=== PATIENT | female | born 2000 | race Caucasian/White ===

== ENCOUNTER 2019-12-22 14:15 | Emergency (ER) | payer OTHER, SELFPAY ==
[2019-12-22 14:21] VITALS: BP 140/83; PULSE 103; RESP 18; TEMP 37.3; O2SAT 100
--- NOTE | 2019-12-22 18:12 | ED.EYEPROB ---
HPI - Eye Problem General Chief complaint: Eye Problems Stated complaint: eye pain Time Seen by Provider: 12/22/19 17:38 Source: patient Mode of arrival: ambulatory Limitations: no limitations History of Present Illness HPI Narrative: This is a 19 year old female that presents to the ER for left eye irritation today. Reports burning to the left eye. No known injuries or trauma to the eye. Reports it started suddenly at work. 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 Denies fever, vision changes, or drainage. Related Data Home Medications Medication Instructions Recorded Confirmed No Home Medications 12/22/19 12/22/19 Allergies Allergy/AdvReac Type Severity Reaction Status Date / Time No Known Allergies Allergy Verified 12/22/19 14:22 Review of Systems Review of Systems: Narrative: CONSTITUTIONAL: Denies fever EYES: Reports redness. Denies visual changes, or discharge. All systems reviewed & are unremarkable except as noted in HPI and below PMFSH Past Medical History Medical History (Updated 12/22/19 @ 18:19 by Dodie Velazquez PA-C) No active medical problems Social History Social History (Updated 12/22/19 @ 18:15 by Dodie Velazquez PA-C) Smoking status: Never smoker Exam Narrative: Exam Narrative: GENERAL: Well-appearing, well-nourished, and in no acute distress. HEAD: Normocephalic, atraumatic. EYES: PERRLA and EOMI. Left eye with mild conjunctival injection. Eyelid everted, no foreign bodies noted. Visual acuity left eye 20/20, right eye 20/15. No uptake noted on fluorescein stain exam EXTREMITIES: Normal range of motion. No edema. SKIN: Warm, dry, no rash. NEURO: No focal deficits. Alert and oriented x3. PSYCH: Normal mood and affect Course Vital Signs Vital signs: Vital Signs Temperature 99.1 F 12/22/19 14:21 Pulse Rate 103 H 12/22/19 14:21 Respiratory Rate 18 12/22/19 14:21 Blood Pressure 140/83 12/22/19 14:21 Pulse Oximetry 100 12/22/19 14:21 Temperature 99.1 F 12/22/19 14:21 Pulse Rate 103 H 12/22/19 14:21 Respiratory Rate 18 12/22/19 14:21 Blood Pressure 140/83 07/18/20 14:21 Pulse Oximetry 100 12/22/19 14:21 MDM - Eye Problem MDM Narrative Medical decision making narrative: Patient presents to the emergency department for conjunctivitis. No vision changes. No foreign bodies noted. No uptake on fluorescein stain exam. Likely allergic in nature, will be started on antibiotic ointment to help with irritation, and treat if this is possibly a bacterial infection. Patient was given ophthalmology as needed for follow-up. She was given warnings to return to the ER Critical Care Time Critical Care Time Critical Care Time: No Discharge Plan Discharge Clinical Impression: Conjunctivitis Qualifiers: Conjunctivitis type: acute Acute conjunctivitis type: unspecified Laterality: left Qualified Code(s): H10.32 - Unspecified acute conjunctivitis, left eye Patient Disposition: Home, Self-Care Condition: Stable Instructions: Conjunctivitis (ED) Additional Instructions: Return to the emergency department if you experience fever, vision changes, drainage from the eye, increasing pain in the eye, or any other symptoms that are concerning to you Apply antibiotic eye ointment 4 times daily for the next 5 days. You may use [id number] allergy eyedrops as needed for irritation as well Follow-up with ophthalmology for further evaluation if symptoms persist Prescriptions: No Action No Home Medications RF: 0 Follow-up/Referrals: PHYSICIAN,SEWER PIPE CLEANER [Primary Care Provider] - Delano Liao MD [Physician] - 2 Days
[2019-12-22 18:17] VITALS: BP 123/73; PULSE 83; RESP 18; O2SAT 97
== END 2019-12-22 18:53 | disposition home or self-care (01) ==
PROVIDERS: Emergency Provider Emergency Medicine
DX: H10.32 Unspecified acute conjunctivitis, left eye (principal)
CPT/HCPCS: 99283; A9270

== ENCOUNTER 2020-07-31 16:13 | Emergency (ER) | payer OTHER, SELFPAY ==
--- NOTE | ~2020-07-31 | XR_ITS ---
EXAMINATION: XR ankle LT min 3V DATE: 07/31/2020 17:19 INDICATION: Left ankle pain. TECHNIQUE: 4 views of left ankle were obtained. COMPARISON: Left ankle radiographs 07/31/2017 FINDINGS: Bone alignment is normal. No fracture. Joint spaces are well maintained. IMPRESSION: 1. No fracture. Reviewed, dictated and finalized at location A. FORWARDING SYSTEM MARKUP CLERK IMPRESSION: 1. No fracture.
[2020-07-31 16:35] VITALS: BP 127/81; PULSE 83; RESP 18; TEMP 37.1; O2SAT 100
--- NOTE | 2020-07-31 17:24 | ED.LOWEXIN ---
HPI - Extremity Injury (Lower) General Chief Complaint: Extremity Injury, Lower Stated Complaint: ankle injury x 1 week Time Seen by Provider: 07/31/20 16:41 Source: patient Mode of arrival: ambulatory Limitations: no limitations History of Present Illness HPI Narrative: 19-year-old female She has no medical problems Presents tonight because of left ankle pain for about 10 days She notices that if she torques her ankle into external rotation and dorsiflexion as far as she can that it hurts behind her lateral malleolus The rest of the time including if she is walking or standing on her tiptoes or what ever it does not seem to bother her at all She did not injure the ankle, there is no swelling or erythema Related Data Home Medications Medication Instructions Recorded Confirmed No Home Medications 12/22/19 12/22/19 Allergies Allergy/AdvReac Type Severity Reaction Status Date / Time No Known Allergies Allergy Verified 12/22/19 14:22 Review of Systems Musculoskeletal: Musculoskeletal: Reports arthralgias, Denies joint swelling and Denies muscle cramps Neurologic: Denies numbness and Denies weakness [facility] Past Medical History Medical History (Updated 07/31/20 @ 17:34 by Renato Thompson MD) No active medical problems Social History Social History (Updated 12/22/19 @ 18:15 by Dodie Velazquez PA-C) Smoking status: Never smoker Gender identity (if verbalized by the patient): Female Exam Const: General: no acute distress Orientation/consciousness: patient oriented x3 Resp: Effort & Inspection: normal respiratory effort Skin: General skin exam: normal color Rashes: no rashes Neuro: General: patient oriented x3 Speech: normal speech Extrem: General: normal to inspection and no edema Other: Left ankle has no swelling, really no tenderness, no deformity, no pain with ambulation or standing on tiptoes There likewise does not seem to be any tenderness posterior to the lateral malleolus or along the course of the posterior tibial tendon Course Vital Signs Vital signs: Vital Signs Temperature 37.1 C 07/31/20 16:35 Pulse Rate 83 07/31/20 16:35 Respiratory Rate 18 07/31/20 16:35 Blood Pressure 127/81 07/31/20 16:35 Pulse Oximetry 100 07/31/20 16:35 Temperature 37.1 C 02/25/21 16:35 Pulse Rate 83 07/31/20 16:35 Respiratory Rate 18 07/31/20 16:35 Blood Pressure 127/81 07/31/20 16:35 Pulse Oximetry 100 07/31/20 16:35 MDM - Extremity Injury (Lower) Imaging Data Radiologist's impression: ITS Impressions Ankle X-Ray 07/31/20 17:21 IMPRESSION: 1. No fracture. Discharge Plan Discharge Clinical Impression: Ankle pain Patient Disposition: Home, Self-Care Condition: Stable Additional Instructions: No restrictions on normal activities, avoid those which exacerbate symptoms, aleve or advil as needed If extremely bothersome you can follow up with orthopedics, below, in the office Prescriptions: No Action No Home Medications RF: 0 Follow-up/Referrals: Jd Santana MD [Physician] - (foot and ankle orthopedics) PHYSICIAN,SYSTEMS QA ANALYST [Primary Care Provider] -
== END 2020-07-31 17:57 | disposition home or self-care (01) ==
PROVIDERS: Emergency Provider Emergency Medicine
DX: M25.572 Pain in left ankle and joints of left foot (principal)
CPT/HCPCS: 73610; 99283

== ENCOUNTER 2020-09-19 21:32 | Emergency (ER) | payer OTHER, SELFPAY ==
--- NOTE | ~2020-09-19 | XR_ITS ---
XR hand LT min 3V DATE: 09/19/2020 21:54 INDICATION: Slammed hand in door. Third and fourth digit pain TECHNIQUE: 3 views left hand COMPARISON: None FINDINGS: No fracture or dislocation, periosteal reaction or bone destruction. IMPRESSION: No significant bony or soft tissue abnormality Reviewed, dictated and finalized at location A.
[2020-09-19 21:42] VITALS: BP 157/78; PULSE 79; RESP 16; TEMP 36.8; O2SAT 97
--- NOTE | 2020-09-19 22:42 | ED.UPPEXIN ---
HPI - Extremity Injury (Upper) General Chief Complaint: Extremity Injury, Upper Stated Complaint: left hand pain Time Seen by Provider: 09/19/20 22:37 History of Present Illness HPI narrative: healthy 19 yo female presents to the ED for a hand injury. Tonight while at work she closed her left hand in the door. She has moderate pain in the hand. This is worse with clenching her fist. No wound. No weakness or numbness. Related Data Home Medications Medication Instructions Recorded Confirmed No Home Medications 12/22/19 12/22/19 Allergies Allergy/AdvReac Type Severity Reaction Status Date / Time No Known Allergies Allergy Verified 12/22/19 14:22 Review of Systems Review of Systems: All systems reviewed & are unremarkable except as noted in HPI and below Cardiovascular: Cardiovascular: Denies chest pain Respiratory: Respiratory: Denies dyspnea Musculoskeletal: Musculoskeletal: Denies back pain PMFSH Past Medical History Medical History No active medical problems Social History Social History Smoking status: Never smoker Gender identity (if verbalized by the patient): Female Exam Const: General: healthy appearing, no acute distress and alert Orientation/consciousness: patient oriented x3 HENMT: Head: normal to inspection Resp: Effort & Inspection: normal respiratory effort Cardio: Other: 2 + left radial pulse Skin: General skin exam: normal color Wounds: no wounds Neuro: General: patient oriented x3 and moves all extremities Speech: normal speech Other: distal motor and sensation intact Extrem: Other: minimal swelling to left hand Course Vital Signs Vital signs: Vital Signs Temperature 36.8 C 09/19/20 21:42 Pulse Rate 79 09/19/20 21:42 Respiratory Rate 16 09/19/20 21:42 Blood Pressure 157/78 H 09/19/20 21:42 Pulse Oximetry 97 09/19/20 21:42 Temperature 36.8 C 09/19/20 21:42 Pulse Rate 79 09/19/20 21:42 Respiratory Rate 16 09/19/20 21:42 Blood Pressure 157/78 H 09/19/20 21:42 Pulse Oximetry 97 09/19/20 21:42 MDM - Extremity Injury (Upper) MDM Narrative Medical decision making narrative: No fracture. Mild pain. Declining treatment at this time. Differential Diagnosis Differential diagnosis: Likely fracture of hand and other (contusion) Medical Records Attestation: I reviewed the patient's medical records. Imaging Data Radiologist's impression: ITS Impressions Hand X-Ray 09/19/20 21:55 IMPRESSION: No significant bony or soft tissue abnormality Discharge Plan Discharge Clinical Impression: Contusion of hand Qualifiers: Encounter type: initial encounter Laterality: left Qualified Code(s): S60.222A - Contusion of left hand, initial encounter Patient Disposition: Home, Self-Care Condition: Stable Instructions: Contusion in Adults (ED) Prescriptions: No Action No Home Medications RF: 0 Follow-up/Referrals: PHYSICIAN,ENGLISH FACULTY MEMBER [Primary Care Provider] - Pierre Choudhary DO [Physician] -
[2020-09-19 22:57] VITALS: BP 131/86; PULSE 81; RESP 18; TEMP 36.6; O2SAT 100
== END 2020-09-19 23:02 | disposition home or self-care (01) ==
PROVIDERS: Emergency Provider Emergency Medicine
DX: S60.222A Contusion of left hand, initial encounter (principal); W23.0XXA Caught, crushed, jammed, or pinched between moving objects, initial encounter
CPT/HCPCS: 73130; 99283

== ENCOUNTER 2020-10-27 17:22 | Emergency (ER) | payer OTHER, SELFPAY ==
[2020-10-27 17:35] VITALS: BP 143/75; PULSE 114; RESP 20; TEMP 37.3; O2SAT 99
[2020-10-27 17:56] VITALS: BP 143/75; PULSE 114; RESP 20; TEMP 37.3; O2SAT 99
--- NOTE | 2020-10-27 18:53 | ED.SKABFB ---
HPI - Skin/Abscess/Foreign Bdy General Chief complaint: Skin/Abscess/Foreign Body Stated complaint: Sun poisoning Time Seen by Provider: 10/27/20 18:08 Source: patient Mode of arrival: ambulatory Limitations: no limitations History of Present Illness HPI narrative: Patient is a 19 year old female who presents with complaints of sunburn. Patient reports out in sun on Tuesday and reports did not use enough sunscreen. Reports nausea and vomiting x 2. Reports using multiple over the counter medications for pain and discomfort without relief. She continues to report nausea. Denies all other complaints at this time. complaint: other (Sunburn) Related Data Allergies Allergy/AdvReac Type Severity Reaction Status Date / Time No Known Allergies Allergy Verified 12/22/19 14:22 Review of Systems Review of Systems: Narrative: CONSTITUTIONAL: Denies fever, chills, or sweats. EYES: Denies visual changes, redness, or discharge. ENT: Denies rhinorrhea, congestion, sore throat, or otalgia. CARDIOVASCULAR: Denies chest pain, palpitations, or edema. RESPIRATORY: Denies cough or dyspnea. GASTROINTESTINAL: Denies abdominal pain, nausea, vomiting, or diarrhea. GENITOURINARY: Denies dysuria or hematuria. SKIN: Reports sunburn MUSCULOSKELETAL: Denies back pain, joint pain, or myalgia. NEUROLOGIC: Denies headache, numbness, dizziness, or weakness. PSYCHIATRIC: Denies anxiety or depression. PMFSH Past Medical History Medical History No active medical problems Social History Social History Smoking status: Never smoker Alcohol intake: current Alcohol use details: Occasional Substance use: never Living arrangements: with family Gender identity (if verbalized by the patient): Female Comments At the time of signature, I have reviewed and agree with nursing past medical, surgical, social, and family history unless otherwise noted. Please see nursing chart for further information. There is no relevant family history pertinent to the presenting complaint. Exam Narrative: Exam Narrative: GENERAL: Well-appearing, well-nourished, and in no acute distress. HEAD: Normocephalic, atraumatic. EYES: EOMI. No redness or drainage. Conjunctiva are normal. ENT: Mucous membranes pink and moist. Nares clear. No rhinorrhea. TMs normal bilaterally. Throat normal. Uvula midline. NECK: AROM. Supple. No lymphadenopathy. CHEST: No respiratory distress. Clear to auscultation. HEART: Regular rate and rhythm. No murmur appreciated. Normal peripheral pulses. GI: Soft, nontender without rebound, or guarding. No distention. Bowel sounds normal in all quadrants. MUSCULOSKELETAL: No bony tenderness. EXTREMITIES: Normal range of motion. No edema. SKIN: Warm, dry, no rash. NEURO: No focal deficits. Alert and oriented x3. Gait steady. PSYCH: Normal affect. No signs of depression or anxiety. Course Vital Signs Vital signs: Vital Signs Temperature 37.3 C 10/27/20 17:35 Pulse Rate 114 H 10/27/20 17:35 Respiratory Rate 20 10/27/20 17:35 Blood Pressure 143/75 H 10/27/20 17:35 Pulse Oximetry 99 10/27/20 17:35 Temperature 37.3 C 10/27/20 17:56 Pulse Rate 78 10/27/20 21:33 Respiratory Rate 18 10/27/20 21:33 Blood Pressure 118/78 10/27/20 21:33 Pulse Oximetry 100 10/27/20 21:33 Discharge Plan Discharge Clinical Impression: Sunburn Patient Disposition: Home, Self-Care Condition: Stable Instructions: Sunburn (ED), Cold Compress or Soak (ED) Additional Instructions: Stay well hydrated. Take medication as directed. Cool compresses for comfort. Calamine lotion for comfort. Follow up with your PCP in 3-5 days if symptoms persist. Prescriptions: New ibuprofen 800 mg tablet 800 mg PO Q6H PRN (Reason: pain) Qty: 20 RF: 0 prednisone 20 mg tablet 40 mg PO DAILY 5 Days Qty: 10 RF: 0
[2020-10-27] MEDS: SODIUM CHLORIDE 0.9% IV 1,000 ML 999 ML IV CONT ×2 (19:07→20:51)
[2020-10-27] MEDS: KETOROLAC 30 MG/ML VIAL (*BKC) IV PUSH (19:07)
[2020-10-27] MEDS: ONDANSETRON INJ 4 MG/2 ML VIAL IV PUSH (19:08)
[2020-10-27 20:51] VITALS: BP 116/66; PULSE 90; RESP 18; O2SAT 100
[2020-10-27 21:33] VITALS: BP 118/78; PULSE 78; RESP 18; O2SAT 100
== END 2020-10-27 21:34 | disposition home or self-care (01) ==
PROVIDERS: Emergency Provider Nurse Practitioner
DX: L55.9 Sunburn, unspecified (principal)
CPT/HCPCS: 96361; 96374; 96375; 99284; J1885; J2405; J7030

== ENCOUNTER 2020-10-29 18:59 | Emergency (ER) | payer OTHER, SELFPAY ==
[2020-10-29 19:15] VITALS: BP 134/88; PULSE 83; RESP 20; TEMP 36.8; O2SAT 99
--- NOTE | 2020-10-29 19:30 | ED.SKABFB ---
HPI - Skin/Abscess/Foreign Bdy General Chief complaint: Skin/Abscess/Foreign Body Stated complaint: Sunburn, swelling, purple thighs, cold to touch Time Seen by Provider: 10/29/20 19:30 Source: patient Mode of arrival: ambulatory Limitations: no limitations History of Present Illness HPI narrative: 19-year-old woman comes in today complaining of bilateral leg pain, swelling and a purplish appearance to her thighs after being treated a few days ago for a severe sunburn. She was exposed on a float trip 10/25. She is currently taking steroids and anti-inflammatories. At the time she did have a low-grade fever and vomiting however those have resolved. MD complaint: discoloration Onset (ago): day(s) (2) Tetanus up to date: unsure Location: LLE and RLE Severity: moderate Quality: burning and sharp Pain Consistency: constant Relieving factors: medication Exacerbating factors: palpation and movement Related Data Allergies Allergy/AdvReac Type Severity Reaction Status Date / Time No Known Allergies Allergy Verified 12/22/19 14:22 Review of Systems Constitutional: Constitutional: Denies chills, Denies fever(s) and Denies weakness Cardiovascular: Cardiovascular: Denies chest pain and Denies radiating jaw, neck or arm pain Respiratory: Respiratory: Denies cough and Denies dyspnea Gastrointestinal: Gastrointestinal: Denies abdominal pain, Denies nausea and Denies vomiting Musculoskeletal: Musculoskeletal: Denies arthralgias and Denies joint swelling Integumentary/Breasts: Skin/Breast: Reports as per HPI, Denies pruritus, Reports erythema and Denies rash Neurologic: Denies vertigo, Denies dizziness and Denies syncope Hematologic/Lymphatic: Hematologic/Lymphatic: Denies easy bleeding and Denies easy bruising Allergic/Immunologic: Allergic/Immunologic: Denies lip swelling and Denies throat swelling PMFSH Past Medical History Medical History No active medical problems Social History Social History Smoking status: Never smoker Alcohol intake: current Substance use: never Gender identity (if verbalized by the patient): Female Exam Const: General: healthy appearing and alert Orientation/consciousness: patient oriented x3 Limitations: no limitations Other: Mild distress. HENMT: Other: Peeling skin on the forehead. Eyes: Conjunctivae: conjunctivae normal Pupils: Equal, round and reactive pupils present EOM: EOMs intact bilaterally Resp: Effort & Inspection: normal respiratory effort and not labored Auscultation: clear to auscultation bilaterally, no rales, no rhonchi and no wheezes Cardio: Rate: regular rate Rhythm: regular rhythm Heart sounds: no murmurs Skin: General skin exam: normal color, no jaundice and no pallor Other: Mildly tender erythema and lividity to the anterior thighs and lower legs. Blanching with modest edema but no pitting. No induration, warmth, exudate or bullae. Neuro: General: patient oriented x3, moves all extremities, no focal motor deficits and CN's II-XI intact bilaterally Speech: normal speech Extrem: General: normal to inspection and no clubbing, cyanosis or edema Psych: Appearance: grossly normal and well kempt Mental Status: mental status grossly normal Affect: normal affect Attitude: cooperative Thought content: Yes Normal thought content present Course Vital Signs Vital signs: Vital Signs Temperature 36.8 C 10/29/20 19:15 Pulse Rate 83 10/29/20 19:15 Respiratory Rate 20 10/29/20 19:15 Blood Pressure 134/88 10/29/20 19:15 Pulse Oximetry 99 10/29/20 19:15 Temperature 36.8 C 10/29/20 19:15 Pulse Rate 83 10/29/20 19:15 Respiratory Rate 20 10/29/20 19:15 Blood Pressure 134/88 10/29/20 19:15 Pulse Oximetry 99 10/29/20 19:15 Discharge Plan Discharge Clinical Impression: Sunburn Patient Disposition: Home,
[2020-10-29 20:01] VITALS: BP 126/74; PULSE 95; RESP 20; TEMP 36.7; O2SAT 99
== END 2020-10-29 20:04 | disposition home or self-care (01) ==
PROVIDERS: Emergency Provider Emergency Medicine
DX: L55.9 Sunburn, unspecified (principal)
CPT/HCPCS: 99281; 99282

== ENCOUNTER 2021-05-03 17:01 | Emergency (ER) | payer OTHER, SELFPAY ==
[2021-05-03 17:24] VITALS: BP 155/97; PULSE 104; RESP 16; TEMP 37; O2SAT 99
[2021-05-03 18:55] LABS: Basophils Percent Auto 0.4 % (0.2-1.2); Eosinophils Absolute Auto 0.1 K/mm3 (0-0.3); Eosinophils Percent Auto 1.1 % (0-4.4); Hematocrit 39.9 % (37.0-47.0); Hemoglobin 13.6 g/dL (12.0-15.0); Immature Granulocyte Absolute 0.03 K/mm3 (0.00-0.031); Immature Granulocyte Percent A 0.3 % (0-0.5); Lymphocytes Absolute Auto 2.52 K/mm3 (0.9-3.2); Lymphocytes Percent Auto 25.2 % (18.3-44.2); Mean Corpuscular HGB Conc 34.1 g/dl (32-36); Mean Corpuscular Hemoglobin 30.4 pg (26-34); Mean Corpuscular Volume 89.3 fl (80-100); Mean Platelet Volume 9.5 fl (7.4-10.4); Monocytes Absolute Auto 0.9 K/mm3 (0.1-0.6); Monocytes Percent Auto 8.9 % (2.6-8.5); Neutrophils Absolute Auto 6.4 K/mm3 (1.3-6.7); Neutrophils Percent Auto 64.1 % (45.5-73.1); Platelet Count Result 342 k/mm3 (150-375); Red Blood Count 4.47 M/mm3 (4.2-5.4)
[2021-05-03 19:04] LABS: Prothrombin Time 12.9 Seconds (11.1-14.7)
[2021-05-03 19:05] LABS: Alanine Aminotransferase 46 U/L (4-35); Albumin Level 4.6 g/dL (3.5-5.1); Alkaline Phosphatase 68 U/L (38-126); Anion Gap 8 mmol/L (8-16); Aspartate Amino Transferase 37 U/L (14-36); Bilirubin,Total 0.4 mg/dL (0.2-1.3); Blood Urea Nitrogen 14 mg/dL (7-17); Calcium 9.4 mg/dL (8.4-10.2); Carbon Dioxide 25 mmol/L (22-30); Chloride 102 mmol/L (98-107); Estimated CRCL calculation 144 ml/min; Estimated Glomerular Filt Rate > 60; Glucose 100 mg/dL (65-110); Partial Thromboplastin Time 28.5 SECONDS (22.3-36.8); Potassium 3.8 mmol/L (3.4-5.0); Sodium 135 mmol/L (137-145)
[2021-05-03 19:42] VITALS: BP 145/76; PULSE 93
[2021-05-03 19:43] VITALS: BP 126/83; BP 141/81; PULSE 94; PULSE 99
--- NOTE | 2021-05-03 20:58 | ED.GIBLEED ---
HPI - GI Bleed General Chief complaint: GI Bleed Stated complaint: blood in stool Time Seen by Provider: 05/03/21 18:37 History of Present Illness HPI Narrative: Patient is a 20-year-old female who presents ER with rectal bleeding. Reports she is had 1 bloody stool each day for the last 3 days. Today she had some small clot and became more concerned. She reports she has a formed bowel movement that the water will have a right shoe to it. She will then see read on her toilet paper. She has no weakness or fatigue. No loss of consciousness. She is on no blood thinners. Denies any constipation or straining recently. No history of hemorrhoids or inflammatory bowel disease. Related Data Home Medications Medication Instructions Recorded Confirmed No Home Medications 05/03/21 05/03/21 Allergies Allergy/AdvReac Type Severity Reaction Status Date / Time No Known Allergies Allergy Verified 05/03/21 19:42 Review of Systems Review of Systems: All systems reviewed & are unremarkable except as noted in HPI and below Constitutional: Constitutional: Denies chills, Denies fever(s) and Denies weakness Cardiovascular: Cardiovascular: Denies chest pain and Denies radiating jaw, neck or arm pain Respiratory: Respiratory: Denies cough and Denies dyspnea Gastrointestinal: Gastrointestinal: Denies abdominal pain, Denies constipation, Denies diarrhea, Denies nausea and Denies vomiting PMFSH Past Medical History Medical History (Updated 05/03/21 @ 21:50 by Jc Lawrence MD) No active medical problems Surgical History Surgical History (Updated 05/03/21 @ 21:50 by Jc Lawrence MD) No history of previous surgery Social History Social History Smoking status: Never smoker Alcohol intake: current Alcohol use details: Occasional Substance use: never Gender identity (if verbalized by the patient): Female Exam Narrative: GENERAL: Well-appearing, well-nourished, and in no acute distress. HEAD: Normocephalic, atraumatic. EYES: PERRL and EOMI. ENT: Mucous membranes moist. CHEST: Clear to auscultation. No respiratory distress. HEART: Regular rate and rhythm. Normal peripheral pulses. ABDOMEN: Soft, nontender, nondistended. Rectal exam without external hemorrhoid, ROMAINE with no gross blood on digit but faint occult positive stool noted. EXTREMITIES: Normal range of motion. No edema. SKIN: Warm, dry, no rash. NEURO: Alert and oriented x3. PSYCH: Normal mood and affect. Course Course Emergency Course: Needs follow-up with PCP and GI. No active hemorrhage. May have internal hemorrhoid or diverticular bleed. Vital Signs Vital signs: Vital Signs Temperature 98.6 F 05/03/21 17:24 Pulse Rate 104 H 05/03/21 17:24 Respiratory Rate 16 05/03/21 17:24 Blood Pressure 155/97 H 05/03/21 17:24 Pulse Oximetry 99 05/03/21 17:24 Temperature 98.6 F 05/03/21 17:24 Pulse Rate 99 05/03/21 19:43 Respiratory Rate 16 05/03/21 17:24 Blood Pressure 126/83 05/03/21 19:43 Pulse Oximetry 99 05/03/21 17:24 MDM - GI Bleed Lab Data Result diagrams: 05/03/21 18:49 05/03/21 18:49 Labs: Lab Results 05/03/21 05/03/21 05/03/21 Range/Units 18:49 18:49 18:49 WBC 10.0 (4.5-10.0) K/mm3 RBC 4.47 (4.2-5.4) M/mm3 Hgb 13.6 (12.0-15.0) g/dL Hct 39.9 (37.0-47.0) % MCV 89.3 (80-100) fl MCH 30.4 (26-34) pg MCHC 34.1 (32-36) g/dl RDW 14.0 (11.5-14.5) % Plt Count 342 (150-375) k/mm3 MPV 9.5 (7.4-10.4) fl Immature Gran % (Auto) 0.3 (0-0.5) % Neut % (Auto) 64.1 (45.5-73.1) % Lymph % (Auto) 25.2 (18.3-44.2) % [place] % (Auto) 8.9 H (2.6-8.5) % Eos % (Auto) 1.1 (0-4.4) % Baso % (Auto) 0.4 (0.2-1.2) % Lymph # (Auto) 2.52 (0.9-3.2) K/mm3 [place] # (Auto) 0.9 H (0.1-0.6) K/mm3 Eos # (Auto) 0.1 (0-0.3) K/mm3 Baso # (Auto) 0.0
[2021-05-03 22:28] VITALS: PULSE 68; RESP 16; O2SAT 100
== END 2021-05-03 22:29 | disposition home or self-care (01) ==
PROVIDERS: Emergency Provider Emergency Medicine
DX: K62.5 Hemorrhage of anus and rectum (principal)
CPT/HCPCS: 36415; 80053; 85025; 85610; 85730; 86850; 86900; 86901; 99283

== ENCOUNTER 2021-06-12 17:40 | Emergency (ER) | payer SELFPAY ==
[2021-06-12 17:50] VITALS: BP 156/84; PULSE 102; RESP 18; TEMP 36.6; O2SAT 97
[2021-06-12 19:15] VITALS: BP 140/88; PULSE 60; RESP 18; O2SAT 99
--- NOTE | 2021-06-12 19:15 | ED.GIBLEED ---
HPI - GI Bleed General Chief complaint: Urogenital-Female Stated complaint: rectal bleeding, stomach pain Time Seen by Provider: 06/12/21 19:15 Source: patient Mode of arrival: ambulatory Limitations: no limitations History of Present Illness HPI Narrative: 18 year-old well woman her today for rectal pain and bleeding with BMs. She is also now having low abdominal pain for 15 minutes after a bowel movement. She has no pain or bleeding between episodes. She has been having rectal bleeding off and on for a few years. It ias worse and mor painful lately. She denies persistent constipation, diarrhea, fevers, night sweats, weight loss, easy bruising or bleeding, gum bleeding and anticoagulant use. complaint: blood on toilet paper, blood streaked stool and gross hematochezia Onset (ago): day(s) (3) Pain Consistency: intermittent Severity: severe Relieving factors: none Exacerbating factors: bowel movement Associated symptoms: denies other symptoms Related Data Allergies Allergy/AdvReac Type Severity Reaction Status Date / Time No Known Allergies Allergy Verified 06/12/21 18:00 Review of Systems Review of Systems: All systems reviewed & are unremarkable except as noted in HPI and below Constitutional: Constitutional: Denies chills and Denies fever(s) ENT: Denies dizziness, Denies epistaxis and Denies sore throat Cardiovascular: Cardiovascular: Denies chest pain and Denies radiating jaw, neck or arm pain Respiratory: Respiratory: Denies cough and Denies dyspnea Gastrointestinal: Gastrointestinal: Denies abdominal pain, Denies constipation, Denies diarrhea, Denies nausea and Denies vomiting Genitourinary: Genitourinary: Denies hematuria, Denies nocturia and Denies dysuria Musculoskeletal: Musculoskeletal: Denies back pain and Denies muscle cramps Neurologic: Denies dizziness and Denies syncope Endocrine: Endocrine: Denies fatigue and Denies polydipsia Hematologic/Lymphatic: Hematologic/Lymphatic: Denies easy bleeding and Denies easy bruising PMFSH Past Medical History Medical History No active medical problems Surgical History Surgical History No history of previous surgery Social History Social History Smoking status: Never smoker Alcohol intake: current Alcohol use details: Occasional Substance use: never Gender identity (if verbalized by the patient): Female Exam Const: General: no acute distress and alert Nutritional Appearance: well nourished Orientation/consciousness: patient oriented x3 HENMT: Mouth: Yes moist mucous membranes Throat: posterior oropharynx normal Eyes: Conjunctivae: conjunctivae normal Pupils: Equal, round and reactive pupils present EOM: EOMs intact bilaterally Resp: Effort & Inspection: normal respiratory effort and not labored Auscultation: no rales, no rhonchi and no wheezes Cardio: Rate: regular rate Rhythm: regular rhythm Heart sounds: no murmurs GI: GI Palp: Yes Soft to palpation and Yes Tenderness to palpation present (GI) (mild, diffuse) Rectal Exam: normal sphincter tone and hemorrhoids (small flaccid anal tags x 2. No gross blood) Skin: General skin exam: normal color, no jaundice and no pallor Rashes: no rashes Neuro: General: patient oriented x3, moves all extremities and CN's II-XI intact bilaterally Gait exam (Neuro): Normal gait present Motor exam (neuro): 5/5 motor strength present throughout, Normal motor muscle tone present throughout and Motor abnormalities not present Extrem: General: normal to inspection and no clubbing, cyanosis or edema Psych: Appearance: grossly normal and well kempt Mental Status: mental status grossly normal Affect: normal affect Attitude: cooperative Thought content: Yes Normal thought content present Course Vital Signs Vital signs: Vit
[2021-06-12 19:44] VITALS: BP 140/72; PULSE 78; RESP 18; TEMP 36.6; O2SAT 100
== END 2021-06-12 19:46 | disposition home or self-care (01) ==
PROVIDERS: Emergency Provider Emergency Medicine; PCP Physician Assistant
DX: K62.5 Hemorrhage of anus and rectum (principal)
CPT/HCPCS: 99283

== ENCOUNTER 2021-07-15 01:29 | Day surgery (SDC) | payer OTHER, SELFPAY ==
[2021-07-02 15:44] VITALS: BMI 34.1
[2021-07-15 06:19] VITALS: BP 143/81; PULSE 107; RESP 16; TEMP 36.1; O2SAT 96; BMI 33.7
[2021-07-15] MEDS: LACTATED RINGERS 1,000 ML 150 ML IV CONT (06:33)
--- NOTE | 2021-07-15 07:25 | WPDANESEPPF ---
Anes - Initial Pre Proc Eval Procedure: Operation Date: 07/15/21 07:30 Proposed Procedures p Colonoscopy - Raman Medina MD Date/Time: 07/15/21 07:25 Surgeon: Raman Medina MD Pre Op Diagnosis: Rectal bleed Patient Data Age: 20 Gender: F Height: 1.65 m Weight: 92.1 kg Last Vital Signs Temp 96.9 F L 07/15/21 06:19 Pulse 107 H 07/15/21 06:19 Resp 16 07/15/21 06:19 BP 143/81 H 07/15/21 06:19 Pulse Ox 96 07/15/21 06:19 Allergies Allergy/AdvReac Type Severity Reaction Status Date / Time No Known Allergies Allergy Verified 07/15/21 06:18 Home Medications Medication Instructions Recorded Confirmed Type No Home Medications 07/02/21 07/15/21 History Patient hx anesthesia problems: none Family hx anesthesia problems: none Results Review: All pre-operative results and documents have been reviewed as part of the pre-operative evaluation. [facility] Past Medical History Medical History No active medical problems Surgical History Surgical History No history of previous surgery Social History Social History Smoking status: Never smoker Alcohol intake: current Drinks per week: 2 Alcohol use details: Occasional Substance use: never Living arrangements: with family Gender identity (if verbalized by the patient): Female Spiritual care concerns: No Anes - Eval Final PreProcedure Day of Procedure 07/15/21 07:25 Patient weight: obese Heart: regular rate and rhythm Lungs: clear to auscultation Airway: Mallampati scale class II Neurological: alert and oriented Last oral intake: >/= 8 hours ASA classification: II Emergent: no Anesthetic plan: proceed Anesthesia type and monitoring: general GIVS and standard monitoring Results Review: All pre-operative results and documents have been reviewed as part of the pre-operative evaluation. Informed Consent: The patient's anesthetic plan and its attendant risks and benefits were discussed with the patient/family/POA. Questions were solicited and answers provided to the satisfaction of the patient/family/POA.
--- NOTE | 2021-07-15 07:32 | WPDHPUPDATE1 ---
History and Physical Update Update Date/Time: 07/15/21 07:32 History and Physical has been reviewed, including an updated exam of the patient. There are NO changes in the patient's condition. Risks, benefits, and alternatives have been discussed and questions answered. Patient agrees to proceed with procedure.
[2021-07-15 07:46] VITALS: BP 89/49; PULSE 97; RESP 24; O2SAT 100
[2021-07-15 07:56] VITALS: BP 103/53; PULSE 77; RESP 29; O2SAT 100
[2021-07-15 08:06] VITALS: BP 101/59; PULSE 70; RESP 23; O2SAT 100
== END 2021-07-15 08:13 | disposition home or self-care (01) ==
PROVIDERS: PCP Physician Assistant; Visit Provider Internal Medicine Gastroenterology
PROC: 0DJD8ZZ Inspection of Lower Intestinal Tract, Via Natural or Artificial Opening Endoscopic (ICD-10-PCS; CPT 45378; principal; 2021-07-15 07:30)
DX: K92.1 Melena (principal); K64.8 Other hemorrhoids; E66.9 Obesity, unspecified; Z68.33 Body mass index [BMI] 33.0-33.9, adult
CPT/HCPCS: 45378; J2704; J7120

== ENCOUNTER 2021-09-27 00:05 | Emergency (ER) | payer OTHER, SELFPAY ==
[2021-09-27] VITALS (9 sets, daily range): BP systolic 121–138; BP diastolic 73–84; PULSE 110; RESP 16; TEMP 37.2; O2SAT 100
--- NOTE | ~2021-09-27 | CT_ITS ---
EXAMINATION: CT abdomen pelvis w con DATE: 09/27/2021 01:59 INDICATION: Lower abdominal pain TECHNIQUE: Computed tomography (CT) of the abdomen and pelvis was performed with 100 mL Omnipaque-350 intravenous contrast. Automated exposure control and iterative reconstruction technique were employe d. The dose-length product was 887.80 mGy-cm. COMPARISON: None FINDINGS: Lung bases are clear. Heart size is normal. No pericardial or pleural effusion. Liver, gallbladder, s pleen, pancreas, bilateral adrenal glands and kidneys are normal. There are few scattered small colon ic diverticula without adjacent inflammatory stranding to suggest diverticulitis. Small bowel and savage endix are normal. Bladder, anteverted uterus and bilateral adnexa are unremarkable. Tampon within the vaginal vault. Small amount of likely physiologic fluid in the cul-de-sac. No abscess or free intrap eritoneal gas. L5 segment partially sacralized on the right. IMPRESSION: 1. No acute intra-abdominal/pelvic process. Reviewed, dictated and finalized at location A.
--- NOTE | 2021-09-27 00:32 | ED.ABDPAIN ---
HPI - Abdominal Pain General Chief Complaint: Abdominal Pain Stated Complaint: ABD PAIN ALL DAY Time Seen by Provider: 09/27/21 00:31 Source: patient Mode of arrival: ambulatory Limitations: no limitations History of Present Illness HPI narrative: Patient is a 20-year-old female complain lower abdominal pain, 5 out of 10, dull, cramping, nonradiating started earlier today. Patient states that she recently began control pill, and since she started taking she has been having the above symptoms. Patient denies any chest pain, shortness of breath, nausea, vomiting, diarrhea, urinary symptoms, fever or chills. Related Data Home Medications Medication Instructions Recorded Confirmed No Home Medications 07/02/21 07/15/21 Allergies Allergy/AdvReac Type Severity Reaction Status Date / Time No Known Allergies Allergy Verified 07/15/21 06:18 Review of Systems Review of Systems: All systems reviewed & are unremarkable except as noted in HPI and below Constitutional: Constitutional: Denies body ache(s), Denies chills, Denies excessive sweating, Denies fatigue, Denies fever(s), Denies headache(s), Denies lethargy, Denies malaise, Denies weakness and Denies weight loss Eyes: Eyes: Denies blurry vision, Denies change in vision and Denies loss of vision ENT: Denies dizziness, Denies ear discharge, Denies headache(s), Denies lip swelling, Denies epistaxis, Denies nasal congestion, Denies neck pain, Denies throat swelling and Denies tongue swelling Cardiovascular: Cardiovascular: Denies chest pain, Denies chest pain at rest, Denies chest pain with activity, Denies diaphoresis, Denies rapid heart rate, Denies edema, Denies irregular heart rhythm, Denies lightheadedness, Denies palpitations, Denies dyspnea and Denies dyspnea on exertion Respiratory: Respiratory: Denies chest congestion, Denies cough, Denies hemoptysis, Denies dyspnea and Denies dyspnea on exertion Gastrointestinal: Gastrointestinal: Denies melena, Denies hematochezia, Denies diarrhea, Denies nausea, Denies vomiting and Denies hematemesis Musculoskeletal: Musculoskeletal: Denies abnormal gait, Denies deformity, Denies joint swelling, Denies limited range of motion, Denies neck pain and Denies numbness Neurologic: Denies Abnormal speech present, Denies abnormal gait, Denies confusion, Denies dizziness, Denies headache(s), Denies focal weakness, Denies loss of vision, Denies numbness, Denies Other visual disturbances, Denies Sensory deficit (Neuro) and Denies weakness Psychiatric: Psychiatric: Denies confusion, Denies depression, Denies auditory hallucinations, Denies homicidal ideation and Denies suicidal ideation Endocrine: Endocrine: Denies cold intolerance, Denies excessive sweating, Denies fatigue, Denies heat intolerance and Denies palpitations Hematologic/Lymphatic: Hematologic/Lymphatic: Denies easy bleeding and Denies easy bruising Allergic/Immunologic: Allergic/Immunologic: Denies lip swelling, Denies throat swelling and Denies tongue swelling PMFSH Past Medical History Medical History No active medical problems Surgical History Surgical History No history of previous surgery Social History Social History Smoking status: Never smoker Alcohol intake: current Drinks per week: 2 Alcohol use details: Occasional Substance use: never Gender identity (if verbalized by the patient): Female Spiritual care concerns: No Exam Const: General: cooperative, healthy appearing, comfortable, no acute distress, well developed, alert and awake; No confusion Orientation/consciousness: oriented to person, oriented to place, oriented to time, patient oriented x3 and No confusion Limitations: no limitations HENMT: Head: normal to inspection, normocephalic and atraumatic Ears: hearing jody
[2021-09-27 00:45] LABS: Basophils Absolute Auto 0.1 K/mm3 (0.0-0.1); Basophils Percent Auto 0.4 % (0.2-1.2); Eosinophils Absolute Auto 0.1 K/mm3 (0-0.3); Eosinophils Percent Auto 1.1 % (0-4.4); Hematocrit 40.1 % (37.0-47.0); Hemoglobin 13.4 g/dL (12.0-15.0); Immature Granulocyte Absolute 0.03 K/mm3 (0.00-0.031); Immature Granulocyte Percent A 0.3 % (0-0.5); Lymphocytes Absolute Auto 2.84 K/mm3 (0.9-3.2); Lymphocytes Percent Auto 24.3 % (18.3-44.2); Mean Corpuscular HGB Conc 33.4 g/dl (32-36); Mean Corpuscular Hemoglobin 29.6 pg (26-34); Mean Corpuscular Volume 88.5 fl (80-100); Mean Platelet Volume 9.8 fl (7.4-10.4); Monocytes Absolute Auto 0.9 K/mm3 (0.1-0.6); Monocytes Percent Auto 7.7 % (2.6-8.5); Neutrophils Absolute Auto 7.8 K/mm3 (1.3-6.7); Neutrophils Percent Auto 66.2 % (45.5-73.1); Platelet Count Result 329 k/mm3 (150-375); Red Blood Count 4.53 M/mm3 (4.2-5.4); Red Cell Distribution Width 13.5 % (11.5-14.5); White Blood Count 11.7 K/mm3 (4.5-10.0)
[2021-09-27 00:47] LABS: Add Urine Microscopic? NO; Appearance Urine Clear (Clear); Bilirubin Urine Negative (Negative); Blood Urine Negative (Negative); Color Urine Straw (Yellow); Glucose Urine UA Negative (Negative); Ketones Urine Negative (Negative); Leukocyte Esterase Ur Negative LEU/UL (Negative); Nitrate Urine Negative (Negative); Protein Urine Negative (Negative); Specific Grav Ur 1.009 (1.001-1.035); Urobilinogen Urine Negative mg/dL (<2.0)
[2021-09-27 01:06] LABS: Alanine Aminotransferase 26 U/L (4-35); Albumin Level 4.8 g/dL (3.5-5.1); Alkaline Phosphatase 64 U/L (38-126); Anion Gap 10 mmol/L (8-16); Aspartate Amino Transferase 32 U/L (14-36); Bilirubin,Total 0.2 mg/dL (0.2-1.3); Blood Urea Nitrogen 13 mg/dL (7-17); Carbon Dioxide 21 mmol/L (22-30); Chloride 106 mmol/L (98-107); Estimated CRCL calculation 123 ml/min; Estimated Glomerular Filt Rate > 60; Glucose 122 mg/dL (65-110); Lipase 104 U/L (23-300); Potassium 3.6 mmol/L (3.4-5.0); Sodium 137 mmol/L (137-145)
[2021-09-27] MEDS: KETOROLAC 30 MG/ML VIAL (*BKC) IV PUSH (02:04)
== END 2021-09-27 04:00 | disposition home or self-care (01) ==
PROVIDERS: Emergency Provider Emergency Medicine; PCP Physician Assistant
DX: R10.30 Lower abdominal pain, unspecified (principal)
CPT/HCPCS: 36415; 74177; 80053; 81003; 81025; 83690; 85025; 96374; 99284; J1885; Q9967

== ENCOUNTER 2023-12-02 19:51 | Emergency (ER) | payer OTHER, SELFPAY ==
--- NOTE | ~2023-12-02 | XR_ITS ---
XR chest 2V Ordering provider: Dodie Velazquez PA-C History: 23 years Female with . fever . Comparison: None. FINDINGS: MEDIASTINUM: The cardiac silhouette is not enlarged. LUNGS: No infiltrates, effusions or pneumothorax. OTHER: No free air under the diaphragm. IMPRESSION: No acute cardiopulmonary pathology. Reviewed, dictated and finalized at location A.
--- NOTE | ~2023-12-02 | CT_ITS ---
CT brain wo con Ordering provider: Dodie Velazquez PA-C History: 23 years Female with . headache . Comparison: None. Technique: CT of the head without contrast. Radiation reduction technique utilized. DLP is 605.33 mGy. FINDINGS: BRAIN PARENCHYMA AND CSF SPACES: No midline shift, mass effect or hemorrhage. The brain parenchyma a nd CSF spaces are otherwise normal. VISUALIZED PARANASAL SINUSES: Well aerated. MASTOIDS: Well aerated. BONES: The bones appear intact. SOFT TISSUES: Visualized nasopharynx is normal. Superficial soft tissues are normal. IMPRESSION: No acute intracranial findings. Reviewed, dictated and finalized at location A.
[2023-12-02 19:53] VITALS: BP 139/81; PULSE 103; RESP 14; TEMP 37.6; O2SAT 100
[2023-12-02 21:11] VITALS: BP 123/66; PULSE 99; RESP 16; O2SAT 100
[2023-12-02 22:04] LABS: Appearance Urine Clear (Clear); Basophils Percent Auto 0.2 % (0.2-1.2); Bilirubin Urine Negative (Negative); Blood Urine Negative (Negative); Color Urine Yellow (Yellow); Eosinophils Percent Auto 0.1 % (0-4.4); Glucose Urine UA Negative (Negative); Hematocrit 44.7 % (37.0-47.0); Hemoglobin 14.9 g/dL (12.0-15.0); Immature Granulocyte Absolute 0.03 K/mm3 (0.00-0.031); Immature Granulocyte Percent A 0.3 % (0-0.5); Ketones Urine Trace mg/dL (Negative); Leukocyte Esterase Ur Negative LEU/UL (Negative); Lymphocytes Absolute Auto 1.39 K/mm3 (0.9-3.2); Lymphocytes Percent Auto 15.9 % (18.3-44.2); Mean Corpuscular HGB Conc 33.3 g/dl (32-36); Mean Corpuscular Hemoglobin 29.5 pg (26-34); Mean Corpuscular Volume 88.5 fl (80-100); Mean Platelet Volume 10.2 fl (7.4-10.4); Monocytes Absolute Auto 0.7 K/mm3 (0.1-0.6); Monocytes Percent Auto 7.8 % (2.6-8.5); Neutrophils Absolute Auto 6.6 K/mm3 (1.3-6.7); Neutrophils Percent Auto 75.7 % (45.5-73.1); Nitrate Urine Negative (Negative); Platelet Count Result 255 k/mm3 (150-375); Protein Urine Negative (Negative); Red Blood Count 5.05 M/mm3 (4.2-5.4); Specific Grav Ur 1.022 (1.001-1.035); White Blood Count 8.7 K/mm3 (4.5-10.0)
[2023-12-02 22:08] LABS: Add Urine Microscopic? NO
[2023-12-02] MEDS: ACETAMINOPHEN 500 MG TABLET 1000 MG PO (22:10)
[2023-12-02] MEDS: SODIUM CHLORIDE 0.9% IV 1,000 ML 999 ML IV CONT (22:11)
--- NOTE | 2023-12-02 22:11 | ED.HA ---
HPI - Headache General Chief Complaint: Headache Stated Complaint: headache Time Seen by Provider: 12/02/23 20:53 Source: patient Mode of arrival: ambulatory Limitations: no limitations History of Present Illness HPI Narrative: This is a 23 year old female that presents to the ER for headaches. Ongoing over the last couple of days. Reports today she started to have a fever. Reports associated myalgias. Denies cough, congestion, sore throat, abdominal pain, vomiting, diarrhea, dysuria, numbness or weakness. Related Data Allergies Allergy/AdvReac Type Severity Reaction Status Date / Time No Known Allergies Allergy Verified 12/02/23 19:58 Review of Systems Review of Systems: CONSTITUTIONAL: Reports fever EYES: Denies visual changes ENT: Denies rhinorrhea, congestion, sore throat RESPIRATORY: Denies cough GASTROINTESTINAL: Denies abdominal pain, nausea, vomiting, or diarrhea. GENITOURINARY: Denies dysuria or hematuria. SKIN: Denies rash MUSCULOSKELETAL: Reports myalgia. NEUROLOGIC: Reports headache. Denies numbness, or weakness. All systems reviewed & are unremarkable except as noted in HPI and below PMFSH Past Medical History Medical History (Updated 12/03/23 @ 00:42 by Dodie Velazquez PA-C) No active medical problems Social History Social History (Updated 12/02/23 @ 22:14 by Dodie Velazquez PA-C) Smoking status: Never smoker Exam Narrative: GENERAL: Well-appearing, well-nourished, and in no acute distress. HEAD: Normocephalic, atraumatic. EYES: PERRLA and EOMI. ENT: Nares clear, no rhinorrhea or epistaxis. Mucous membranes moist. Oropharynx without tonsillar hypertrophy exudate or other lesions. Bilateral TMs pearly leo non-bulging NECK: Supple. No adenopathy or masses. Normal ROM CHEST: Clear to auscultation. No respiratory distress. No wheezes rales or rhonchi HEART: Regular rate and rhythm. No murmur heard. Normal peripheral pulses. ABDOMEN: Soft, nontender, nondistended, normal active bowel sounds. EXTREMITIES: Normal range of motion. No edema. SKIN: Warm, dry, no rash. NEURO: No focal deficits. Alert and oriented x3. Cranial nerves 2-12 grossly intact. Negative Kernig and Brudzinski PSYCH: Normal mood and affect Course Course Emergency Course: Patient updated on her workup. Reports feeling much better after migraine cocktail. Resting comfortably Vital Signs Vital signs: Vital Signs Temperature 99.7 F H 12/02/23 19:53 Pulse Rate 103 H 12/02/23 19:53 Respiratory Rate 14 12/02/23 19:53 Blood Pressure 139/81 12/02/23 19:53 Pulse Oximetry 100 12/02/23 19:53 Oxygen Delivery Room Air 12/02/23 19:53 Temperature 99.7 F H 12/02/23 19:53 Pulse Rate 83 12/02/23 23:37 Respiratory Rate 14 12/02/23 23:37 Blood Pressure 116/70 12/02/23 23:37 Pulse Oximetry 97 12/02/23 23:37 Oxygen Delivery Room Air 12/02/23 19:53 MDM - Headache MDM Narrative Medical decision making narrative: patient presents to the emergency department for viral symptoms ongoing over the last couple of days. Reporting headaches, myalgias, and fevers. Borderline febrile upon arrival. Mildly tachycardic. Heart rate normalized with IV fluids. She is nontoxic appearing. She is neurologically intact. CBC metabolic panel without concerning findings. COVID, influenza, and RSV screens are negative. Strep and mono screens are negative. Chest x-ray without acute cardiopulmonary abnormality. Urine without evidence of infection. test is negative. CT brain is normal. Patient updated on her workup. Reports feeling much better after migraine cocktail. Resting comfortably. She is to follow up with PCP. She was given warnings to return to the ER Differential Diagnosis Differential diagnosis: Likely migraine, tension headache, sinusitis and other ( UTI, pneumonia, viral infection, COVID, influenza, strep) Lab Data Attestation: I reviewed the patient's lab results.
[2023-12-02 22:12] LABS: Alanine Aminotransferase 27 U/L (6-35); Albumin Level 4.7 g/dL (3.5-5.1); Alkaline Phosphatase 70 U/L (38-126); Anion Gap 10 mmol/L (4-12); Aspartate Amino Transferase 30 U/L (14-36); Bilirubin,Total 0.6 mg/dL (0.2-1.3); Blood Urea Nitrogen 12 mg/dL (7-17); Calcium 9.2 mg/dL (8.4-10.2); Carbon Dioxide 23 mmol/L (22-30); Chloride 105 mmol/L (98-107); Estimated CRCL calculation 111 ml/min; Estimated Glomerular Filt Rate > 60; Glucose 97 mg/dL (65-110); Potassium 3.9 mmol/L (3.4-5.0); Sodium 138 mmol/L (137-145)
[2023-12-02] MEDS: diphenhydrAMINE HCl INJ 50 MG/ML VIAL 25 MG IV PUSH (22:12)
[2023-12-02] MEDS: METOCLOPRAMIDE HCL INJ 10 MG/2 ML VIAL IV PUSH (22:13)
[2023-12-02 22:47] LABS: Strep Group A RT-PCR NOT DETECTED (Negative)
[2023-12-02 22:57] LABS: Influenza A QL RT-PCR Negative (Negative); Influenza B QL RT-PCR Negative (Negative); RSV RNA, RT-PCR Negative (Negative); SARS-CoV-2 RNA PCR Negative (Negative)
[2023-12-02] MEDS: KETOROLAC 15 MG/ML VIAL (*BKC) IV PUSH (23:22)
[2023-12-02 23:37] VITALS: BP 116/70; PULSE 83; RESP 14; O2SAT 97
[2023-12-02 23:48] LABS: Monoscreen Negative (Negative); Negative Monotest Control Negative (Negative); Positive Monotest Control Positive (Positive)
== END 2023-12-03 00:51 | disposition home or self-care (01) ==
PROVIDERS: Emergency Provider Physician Assistant; PCP Physician Assistant
DX: B34.9 Viral infection, unspecified (principal); R51.9 Headache, unspecified; Z20.822 Contact with and (suspected) exposure to COVID-19
CPT/HCPCS: 36415; 70450; 71046; 80053; 81003; 81025; 85025; 86308; 87637; 87651; 96361; 96374; 96375; 99284; A9270; J1200; J1885; J2765; J7030

== ENCOUNTER 2024-07-15 20:08 | Emergency (ER) | payer SELFPAY ==
--- NOTE | ~2024-07-15 | CT_ITS ---
CLINICAL INDICATION: Lower abdominal pain, right greater than left COMPARISON: 09/27/2021. TECHNIQUE: Multiple contiguous axial images of the abdomen and pelvis were performed following the ad ministration of with 100 mL Omnipaque-350 intravenous contrast The dose-length product (DLP) was 909.08 mGy-cm. Automated exposure control and iterative reconstruction technique were employed. FINDINGS/OBSERVATIONS: Visualized lower thorax: The bilateral lung bases are clear. The heart is of normal size, without pericardial effusion. Small hiatal hernia is present. Liver: The liver enhances homogeneously and demonstrates diffuse fatty infiltration and is enlarged measurin g 21 cm in longitudinal dimension. Gallbladder and biliary system: The gallbladder is only minimally distended, and otherwise unremarkable. Pancreas: The pancreas enhances homogeneously without ductal dilatation. Spleen: The spleen enhances homogeneously and is not enlarged measuring 10 cm in longitudinal dimension. Kidneys: The bilateral kidneys enhance symmetrically without hydronephrosis or renal calculi. Adrenal glands: Unremarkable. Gastrointestinal tract: Caudal and medial to the appendix is free fluid along with infiltration of the peritoneum, possibly o f STOREROOM KEEPER origin. Appendix: The appendix is of normal caliber (axial series, images 119 through 126). Vasculature: Unremarkable. Lymph nodes: No pathologically enlarged or morphologically suspicious lymph nodes within the retroperitoneum or at the root of the mesentery. Pelvic structures: The bladder is decompressed, and otherwise unremarkable. The uterus is anteverted and anteflexed. The left ovary is visualized and is unremarkable. Visualization of the right ovary is somewhat limited, secondary to its proximity to the uterus and ad ditional surrounding structures. Caudal and medial to the appendix is free fluid along with infiltration of the peritoneum, possibly o f STOREROOM KEEPER origin. Body wall and musculoskeletal: No significant degenerative disease within the lower thoracic or lumbosacral spine. IMPRESSION: Findings in the right lower quadrant which are felt to represent a normal appendix. Additional findings caudal and medial to the suspected appendix, within the region of the right ovary , for which pelvic ultrasound may provide better characterization. Free fluid along with infiltration of the peritoneum in the right lower quadrant, caudal and medial t o the appendix and cecum. This finding may represent a ruptured cyst within the ovary. Fatty infiltration of an enlarged liver. Examination is otherwise unremarkable. Reviewed, dictated and finalized at location A. 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 Additional findings caudal and medial to the suspected appendix, within the reg ion of the right ovary, for which pelvic ultrasound may provide better characte rization. Free fluid along with infiltration of the peritoneum in the right lower quadran t, caudal and medial to the appendix and cecum. This finding may represent a ruptured cyst within the ovary. Fatty infiltration of an enlarged liver. Examination is otherwise unremarkable.
[2024-07-15 20:10] VITALS: BP 112/72; PULSE 78; RESP 18; TEMP 36.9; O2SAT 100
--- NOTE | 2024-07-15 20:21 | ED_ITS ---
HPI - General Adult General Chief complaint: Abdominal Pain Stated complaint: abdominal pain Time Seen by Provider: 07/15/24 20:13 History of Present Illness HPI narrative: Jaky is previously healthy 23F that presented to the ED with abdominal pain. It is bilateral lower quadrant pain that started yesterday, it radiates to the back. It feels like menses cramps but much worse. She had a few episodes of non- bloody vomiting yesterday. No vaginal discharge, dysuria, hematuria, diarrhea, fevers, CP or dyspnea. Related Data Allergies Allergy/AdvReac Type Severity Reaction Status Date / Time No Known Allergies Allergy Verified 07/15/24 21:26 Review of Systems 2 Review of Systems: All systems reviewed & are unremarkable except as noted in HPI and below PMFSH Past Medical History Medical History No active medical problems Internal hemorrhoid, bleeding Hematochezia No active medical problems Surgical History Surgical History No history of previous surgery Social History Social History Smoking status: Never smoker Alcohol intake: current Drinks per week: 2 Alcohol use details: Occasional Substance use: never Living arrangements: with family Gender identity (if verbalized by the patient): Female Spiritual care concerns: No Exam 2 Const: General: cooperative, healthy appearing, comfortable, no acute distress, well developed, alert, awake and Physically active O rientation/consciousness: oriented to person, oriented to place and oriented to time HENMT: Head: normal to inspection, normocephalic and atraumatic Ears: h earing grossly normal bilaterally and external ears normal Face/Nose/Sinus: N ormal external nose present Eyes: General: appearance normal, both eyes and all related structures P eriorbital: periorbital findings normal Sclera: sclerae normal Pupils: E qual, round and reactive pupils present Neck: Neck: normal visual inspection Chest: Chest palpation & inspection: normal inspection of the chest Resp: Effort & Inspection: normal respiratory effort, able to speak in complete sentences and no respiratory distress Auscultation: clear to auscultation bilaterally Cardio: Jugular venous distension: no JVD Rate: regular rate Rhythm: r egular rhythm GI: Inspection: normal to inspection GI Palp: Yes Soft to palpation A uscultation: normal bowel sounds Other: TTP in the lower abdomen, right worse than left. Skin: General skin exam: normal color and no rashes or lesions noted Neuro: General: oriented to person, oriented to place and oriented to time Cranial nerves: Yes Equal, round and reactive pupils present Extrem: General: normal to inspection Course Course Emergency Course: ordered labs, UA, fluids and morphine. CLINICAL INDICATION: Lower abdominal pain, right greater than left COMPARISON: 09/27/2021. TECHNIQUE: Multiple contiguous axial images of the abdomen and pelvis were performed following the administration of with 100 mL Omnipaque-350 intravenous contrast The dose-length product (DLP) was 909.08 mGy-cm. Automated exposure control and iterative reconstruction technique were employed. FINDINGS/OBSERVATIONS: Visualized lower thorax: The bilateral lung bases are clear. The heart is of normal size, without pericardial effusion. Small hiatal hernia is present. Liver: The liver enhances homogeneously and demonstrates diffuse fatty infiltration and is enlarged measuring 21 cm in longitudinal dimension. Gallbladder and biliary system: The gallbladder is only minimally distended, and otherwise unremarkable. Pancreas: The pancreas enhances homogeneously without ductal dilatation. Spleen: The spleen enhances homogeneously and is not enlarged measuring 10 cm in longitudinal dimension. Kidneys: The bilateral kidneys enhance symmetrically without hydronephrosis or renal calculi. Adrenal glands: Unremarkable. Gastrointestinal tract: Caudal and medial to the appendix is free fluid along with infiltration of the peritoneum, possibly of CORPORATE CONCIERGE origin. Appendix: The appendix is of normal caliber (axial series, images 119 through 126). Vasculature: Unremarkable. Lymph nodes: No pathologically enlarged or morphologically suspicious lymph nodes within the retroperitoneum or at the root of the mesentery. Pelvic structures: The bladder is decompressed, and otherwise unremarkable. The uterus is anteverted and anteflexed. The left ovary is visualized and is unremarkable. Visualization of the right ovary is somewhat limited, secondary to its proximity to the uterus and additional surrounding structures. Caudal and medial to the appendix is free fluid along with infiltration of the peritoneum, possibly of CORPORATE CONCIERGE origin. Body wall and musculoskeletal: No significant degenerative disease within the lower thoracic or lumbosacral spine. IMPRESSION: Findings in the right lower quadrant which are felt to represent a normal appendix. Additional findings caudal and medial to the suspected appendix, within the region of the right ovary, for which pelvic ultrasound may provide better characterization. Free fluid along with infiltration of the peritoneum in the right lower quadrant, caudal and medial to the appendix and cecum. This finding may represent a ruptured cyst within the ovary. Fatty infiltration of an enlarged liver. Examination is otherwise unremarkable. Labs largely unremarkable After meds and fluids she was feeling much better. Vital Signs Vital signs: Vital Signs Temperature 98.4 F 07/15/24 20:10 Pulse Rate 78 07/15/24 20:10 Respiratory Rate 18 07/15/24 20:10 Blood Pressure 112/72 07/15/24 20:10 Pulse Oximetry 100 07/15/24 20:10 Oxygen Delivery Room Air 07/15/24 20:10 Temperature 98.7 F 07/15/24 22:18 Pulse Rate 87 07/15/24 22:18 Respiratory Rate 16 07/15/24 22:18 Blood Pressure 116/66 07/15/24 22:18 Pulse Oximetry 96 07/15/24 22:18 Oxygen Delivery Room Air 07/15/24 22:18 Medical Decision Making Vital Signs Vital Signs: Vital Signs Temperature 98.4 F 07/15/24 20:10 Pulse Rate 78 07/15/24 20:10 Respiratory Rate 18 07/15/24 20:10 Blood Pressure 112/72 07/15/24 20:10 Pulse Oximetry 100 07/15/24 20:10 Oxygen Delivery Room Air 07/15/24 20:10 Temperature 98.7 F 07/15/24 22:18 Pulse Rate 87 07/15/24 22:18 Respiratory Rate 16 07/15/24 22:18 Blood Pressure 116/66 07/15/24 22:18 Pulse Oximetry 96 07/15/24 22:18 Oxygen Delivery Room Air 07/15/24 22:18 Lab Data 07/15/24 20:14 07/15/24 20:14 Labs: Lab Results 07/15/24 07/15/24 Range/Units 20:14 20:17 WBC 10.1 (4.8-10.8) K/mm3 RBC 4.51 (4.20-5.40) M/mm3 Hgb 13.5 (12.0-15.0) g/dL Hct 40.3 (35.0-49.0) % MCV 89.4 (78.0-102.0) fL MCH 29.9 (27.0-31.0) pg MCHC 33.5 (32-36) g/dL RDW 13.1 (11.6-14.4) % Plt Count 332 (150-420) K/mm3 MPV 9.8 (9.2-11.8) fl Immature Gran % (Auto) 0.3 H (0.0-0.0) % Neut % (Auto) 56.2 (50.0-70.0) % Lymph % (Auto) 33.8 (18.0-42.0) % [place] % (Auto) 7.9 (2.0-11.0) % Eos % (Auto) 1.3 (1.0-6.0) % Baso % (Auto) 0.5 (0.0-1.0) % Lymph # (Auto) 3.42 (1.10-4.50) K/mm3 [place] # (Auto) 0.80 (0.10-0.90) K/mm3 Eos # (Auto) 0.13 (0.02-0.50) K/mm3 Baso # (Auto) 0.05 (0.00-0.10) K/mm3 Abs Immat Gran (auto) 0.03 H (0.00-0.00) K/mm3 Absolute Neuts (auto) 5.69 (1.70-7.20) K/mm3 Absolute Nucleated RBC 0.00 (0.00-0.00) K/mm3 Nucleated RBC % 0.0 (0-0.0) % PT 10.8 (9.50-12.1) Seconds INR 1.0 Sodium 139 (136-145) mmol/L Potassium 3.6 (3.5-5.1) mmol/L Chloride 103 (98-108) mmol/L Carbon Dioxide 28 (21-32) mmol/L Anion Gap 8 (4-12) mmol/L BUN 16 (7-18) mg/dL Creatinine 0.95 (0.55-1.02) mg/dL Estim Creat Clear Calc Not Reportable Estimated GFR > 60 (59 - ) Glucose 95 (70-99) mg/dL Calculated Osmolality 289 (285-295) mOsm/kg Lactic Acid 1.0 (0.4-2.0) mmol/L Calcium 9.1 (8.5-10.1) mg/dL Total Bilirubin 0.4 (0.00-1.00) mg/dL AST 16 (15-37) U/L ALT 23 (14-59) U/L Alkaline Phosphatase 59 (46-116) U/L Total Protein 7.7 (6.4-8.2) g/dL Albumin 4.0 (3.4-5.0) g/dL Lipase 51 (16-77) U/L Urine Color Light yellow (Yellow) Urine Appearance Clear (Clear) Urine pH 7.0 (5.0-8.0) Ur Specific [place] 1.010 (1.010-1.020) Urine Protein Negative (Negative) Urine Glucose (UA) Negative (Negative) Urine Ketones Negative (Negative) Ur Blood (Man) Negative (Negative) Urine Nitrate Negative (Negative) Urine Bilirubin Negative (Negative) Urine Urobilinogen 0.2 (0.2-1.0) mg/dL Leukocyte Esterase Rfl Negative (Negative) KISHAN/UL Urine Test Negative Discharge Plan Discharge Clinical Impression: Ovarian cyst rupture Patient Disposition: Home, Self-Care Condition: Stable Instructions: Ovarian Cyst (ED) Patient Language: Greenlandic Prescriptions: New hydrocodone-acetaminophen 5-325 mg tablet 1 tablet PO Q8H PRN (Reason: pain) Qty: 10 0RF Follow-up/Referrals: Luis F,LOR Rowland [Primary Care Provider] -
[2024-07-15 20:50] LABS: Basophils Absolute Auto 0.05 K/mm3 (0.00-0.10); Basophils Percent Auto 0.5 % (0.0-1.0); Eosinophils Absolute Auto 0.13 K/mm3 (0.02-0.50); Eosinophils Percent Auto 1.3 % (1.0-6.0); Hematocrit 40.3 % (35.0-49.0); Hemoglobin 13.5 g/dL (12.0-15.0); Immature Granulocyte Absolute 0.03 K/mm3 (0.00-0.00); Immature Granulocyte Percent A 0.3 % (0.0-0.0); Lymphocytes Absolute Auto 3.42 K/mm3 (1.10-4.50); Lymphocytes Percent Auto 33.8 % (18.0-42.0); Mean Corpuscular HGB Conc 33.5 g/dL (32-36); Mean Corpuscular Hemoglobin 29.9 pg (27.0-31.0); Mean Corpuscular Volume 89.4 fL (78.0-102.0); Mean Platelet Volume 9.8 fl (9.2-11.8); Monocytes Percent Auto 7.9 % (2.0-11.0); Neutrophils Absolute Auto 5.69 K/mm3 (1.70-7.20); Neutrophils Percent Auto 56.2 % (50.0-70.0); Platelet Count Result 332 K/mm3 (150-420); Red Blood Count 4.51 M/mm3 (4.20-5.40); Red Cell Distribution Width 13.1 % (11.6-14.4); White Blood Count 10.1 K/mm3 (4.8-10.8)
[2024-07-15] MEDS: SODIUM CHLORIDE 0.9% IV 1,000 ML 999 ML IV CONT (20:53)
[2024-07-15] MEDS: MORPHINE SULFATE (*CRX) 4 MG/ML INJ IV PUSH (20:53)
[2024-07-15 21:04] LABS: Prothrombin Time 10.8 Seconds (9.50-12.1)
[2024-07-15 21:10] LABS: Alanine Aminotransferase 23 U/L (14-59); Alkaline Phosphatase 59 U/L (46-116); Anion Gap 8 mmol/L (4-12); Aspartate Amino Transferase 16 U/L (15-37); Bilirubin,Total 0.4 mg/dL (0.00-1.00); Blood Urea Nitrogen 16 mg/dL (7-18); Calcium 9.1 mg/dL (8.5-10.1); Carbon Dioxide 28 mmol/L (21-32); Chloride 103 mmol/L (98-108); Estimated Glomerular Filt Rate > 60; Glucose 95 mg/dL (70-99); Lipase 51 U/L (16-77); Osmolality Calculated 289 mOsm/kg (285-295); Potassium 3.6 mmol/L (3.5-5.1); Sodium 139 mmol/L (136-145); Total Protein 7.7 g/dL (6.4-8.2)
[2024-07-15 21:21] LABS: Pregnancy On Board Control Positive; Urine Pregnancy Test Negative
[2024-07-15 21:46] LABS: Add Urine Microscopic? NO; Appearance Urine Clear (Clear); Bilirubin Urine Negative (Negative); Blood Urine Negative (Negative); Color Urine Light Yellow (Yellow); Glucose Urine UA Negative (Negative); Ketones Urine Negative (Negative); Leukocyte Esterase Ur Negative LEU/UL (Negative); Nitrate Urine Negative (Negative); Protein Urine Negative (Negative); Urobilinogen Urine 0.2 mg/dL (0.2-1.0)
[2024-07-15 22:18] VITALS: BP 116/66; PULSE 87; RESP 16; TEMP 37.1; O2SAT 96
== END 2024-07-15 22:30 | disposition home or self-care (01) ==
PROVIDERS: Emergency Provider Family Medicine; PCP Physician Assistant
DX: R10.31 Right lower quadrant pain (principal); N83.209 Unspecified ovarian cyst, unspecified side
CPT/HCPCS: 36415; 74177; 80053; 81003; 81025; 83605; 83690; 85025; 85610; 96361; 96374; 99284; J2270; J7030; Q9967

== ENCOUNTER 2025-05-08 10:49 | Outpatient (CLI) | payer OTHER, SELFPAY ==
--- NOTE | ~2025-05-08 | XR_ITS ---
EXAMINATION: XR wrist LT min 3V, 05/08/2025 11:00 DIRECT SUPPORT STAFF HISTORY: L WRIST PAIN COMPARISON: No comparisons available. Findings: No acute fracture or malalignment. No significant degenerative changes. Soft tissues unremarkable. Impression: No acute fracture or malalignment. Reviewed, dictated and finalized at location P. CT SUPPORT STAFF Impression: No acute fracture or malalignment.
--- OUTSIDE RECORDS SUMMARY | 2025-05-08 12:30 | XMS_ITS | Data Portability ---
Author Organization [facility], [id number] Address [address] [place] [address] Assessment No assessment recorded. Plan of Treatment Reminders Order Date Submit Date Provider Last Modified By Organization Details Last Modified Time Details Appointments None record ed. Lab None record ed. Referral None record ed. Procedures None record ed. Surgeries None record ed. Imaging None record ed. Medication Orders None record ed. Patient TargetsNo targets recorded. Patient InstructionsNo instructions recorded. Reason for Referral None Reported. Problems No Known Problems Procedures Surgical History Date Name Laterality Status Provider Name and Address Organization Details Recorded Time Date of Last Colonoscopy completed [facility] 12/14/2024 15:53:50 Colonoscopy completed [facility] 12/14/2024 15:54:38 Imaging Results None recorded. Procedure Notes None recorded. Medical Equipment None Reported. Allergies No known drug allergies Medications Name Sig Start Date Stop Date Status Note LastModified by Organization Details LastModified Time hydrocodone 5 mg-acetaminop hen 325 mg tablet TAKE 1 TABLET BY MOUTH EVERY 8 HOURS NEEDED FOR PAIN 12/14 completed Not Available Not Available Not Available Vitals Date Recorded Body weight Body mass index (BMI) Body height Systolic And Diastolic Provider Name and Address Organization Details Last Updated DateTime 12/14/2024 19218.36 g 36.9 kg/m2 162.56 cm 124/68 mm[Hg] Priyanka [facility] 12/14/2024 15:52:53 Social History Question Answer Notes LastModified by Organizat ion Details LastModified Time Tobacco Smoking Status Never Smoker Priyanka Pineda [facility] 12/14/2024 15:44:48 Do You Have An Advance Directive? No [email or web address] Information not available 12/14/2024 If You Are , What Was Your Level Of Alcohol Consumption Prior To ? None Information not available 12/14/2024 How Many Years Have You Consumed Alcohol? 5 [email or web address] Information not available 12/14/2024 What Is Your Level Of Caffeine Consumption? Occasional [email or web address] Information not available 12/14/2024 What Type Of Diet Are You Following? REGULAR [email or web address] Information not available 12/14/2024 What Is Your Relationship Status? Single Information not available 12/14/2024 Sex: Unknown Functional Status Question Answer Note LastModified by [employer] Details LastModified Time How many times per week do you consume alcohol? Less than 1 time per week Information not available 12/14/2024 Do you use any illicit or recreational drugs? No [email or web address] Information not available 12/14/2024 What is your level of alcohol consumption? Occasional [email or web address] Information not available 12/14/2024 Are you currently employed? Yes [email or web address] Information not available 12/14/2024 Mental Status None recorded. Family History Relationship Description Onset Age of this Age Resolved Age Notes LastModified by Organization Details LastModified Time Maternal Grandmother Heart disease [email or web address] Not available 2024 15:44:47 Maternal Grandmother Osteoporosis [email or web address] Not available 12/14/2024 15:44:48 Maternal Grandmother Kidney disease Not available 2024 15:44:48 Maternal Grandmother Disease of liver [email or web address] Not available 2024 15:54:31 Medical History Condition Response GI- Hemorrhoids Y Gynecological History Statement/Question Response 14 History of PCOS N Flow Heavy History of Fibroids N Date of LMP 12/09/2024 History of Infertility N History of Vulvar Dysplasia N History of Cervical Dysplasia N Current Control Method: None Duration of Flow (days) 7 Age at Menarche 13 History of Recurrent Ovarian Cysts N Age at first intercourse 14 HPV Vaccine Not Completed History of Endometriosis N Date of Last Colonoscopy 06/06/2020 Frequency of Cycle (Q days) 28 Sexually Active? Y History of Dysmenorrhea N Menses Monthly Y Sexual Problems? Y History of Sexually Transmitted Infectio n N Obstetrics History GPAL:G 0 P 0 0 0 0 Past Encounters Encounter ID Performer Location Encounter Start Date Encounter Closed Date Diagnosis/Indication Diagnosis SNOMED-CT Code Diagnosis ICD10 Code Diagnosis IMO Codes Diagnosis Note [id number] [address], [place] [id number] [facility] [address] [place] [address] 12/14/2024 15:02:26 12/14/2024 16:19:42 Fertility care management [id number] Z31.89 [id number] Discussed tracking periods, intercours e, and adding ovulation test kits. Requesting visit with SUSANNA. Informatio n given for Paulo. Health Concerns Section Related Observation LastModified by Organization Detai ls LastModified Time None Recorded Concern Status LastModified by Organization Details LastModified Time None Recorded Advance Directives Directive N: Payers Insurance Date Sequence Insurance Name Policy Number Policy Duenas Covered Member ID Duenas Member ID Guarantor Name 12/24/2024 1 [facility] [id number] Jaky Gifford Rosas [id number] Jaky Rosas Notes Date Note Type Note Provider Name and Address Organization Details Recorded Time 12/14/2024 text/html Jaky presents with concerns of infertility. Reports she and have been trying to achieve for 13 months. Describes periods as heavy and painful occurring regularly every 28 days each lasting 6-7 days requiring an ultra tampon every 2 hours. Midol does help with the pain. Partner has a baby from previous partner. Reports regular intercourse 4-5 times per week. Is using savage to predict ovulation days. Has not used ovulation test kits STEPHANY JUAREZ [facility] [address], [place], [address], [facility] 12/20/2024 21:54:28 OBGyn Episode No OBEpisode recorded.
--- OUTSIDE RECORDS SUMMARY | 2025-05-08 12:30 | XMS_ITS | Clinical Summary ---
Author Organization [facility] Address [address] [place] [id number] Care Team Providers Care Mobile Game Engineer Name Role Phone Kashif Kerns Primary Care Provider [phone] Social History Tobacco Use Types Packs/Day Years Used Date Smoking Tobacco: Never Assessed Comments Unknown Sex and Gender Information Value Date Recorded Sex Assigned at Not on file Legal Sex Female 11:47 PM CDT Gender Identity Not on file Sexual Orientation Not on file Plan of Treatment Health Maintenance Due Date Last Done Comments Cervical Cancer Screening Pap Smear (Age 21 to 29) Every 3 Years 1999 Cervical Cancer Screening 1999 Hepatitis B Vaccines (4 of 4 - 4-dose series) 05/18/2000 03/11/2000, 01/18/2000, 1999 Annual Physical 11/16/2002 HPV Vaccines (2 - 2-dose series) 09/10/2014 03/12/2014 Hepatitis C 11/16/2017 DTaP, Tdap and Td Vaccines (6 - Td or Tdap) 03/12/2024 03/12/2014, 06/11/2005, 05/20/2002, Additional history exists COVID-19 Vaccine ( season) 2025 01/13/2021, 12/23/2020 Influenza Adult (#1) 2025 03/12/2014 Meningococcal Vaccine Completed 02/02/2017 Hepatitis A Vaccines Aged Out No long er eligible based on patient's age to complete this topic Meningococcal B Vaccine Aged Out No l onger eligible based on patient's age to complete this topic Pneumococcal Vaccine: Pediatrics (0 to 5 Years) and At-Risk Patients (6 to 49 Years) Aged Out No longer eligible based on patient's age to complete this topic RSV Immunizations Under 20 Months Aged Out No longer eligible based on patient's age to complete this topic Care Teams Mobile Game Engineer Relationship Specialty Start Date End Date Kashif Kerns PA [address] [place] [phone] PCP - General PHYSICIAN BOOM CRANE OPERATOR 04/03/24
== END 2025-05-08 10:50 | disposition home or self-care (01) ==
LOC: CHSIMG 10:56
PROVIDERS: PCP Physician Assistant; Visit Provider Physician Assistant
DX: M25.532 Pain in left wrist (principal)
CPT/HCPCS: 73110